=== PATIENT | male | born 1980 | race Caucasian/White ===

== ENCOUNTER 2023-02-11 07:44 | Outpatient (AMB) | payer SELFPAY ==
--- NOTE | 2023-02-11 07:24 | A.OFFVIS_ITS ---
Intake Vital Signs 02/11/23 07:25 Height 5 ft 9 in Weight 200 lb BMI 29.5 BP 126/76 Blood Pressure Location Rt brachial Intake Visit Reasons: Gastroesophageal reflux disease (GERD) Intake Note: patient here for new patient appointment. patient reports he had Colonoscopy and EGD in October of 2021. patient takes Prilosec for GERD, originally 20mg, has been on 40mg for some time now. cc: patient complains of abdominal bloating and distension and possible lactose intolerance. Allergies codeine Allergy (Verified 02/11/23 07:30) [facility] Medication List - Last Reconciled 02/11/23 by Judi Olson, RN multivitamin 1 tab PO DAILY pantoprazole (Protonix) 40 mg PO DAILY sumatriptan succinate 100 mg PO Q2-4H PRN HPI HPI Comments History of Present Illness Details A 42-year-old male referred with GERD he says-= he was not expecting this appointment- he has no urgent issues- he had been taking omeprazole 20 mg for about 2 years has since been increased to omeprazole 40 mg he continues to have breakthrough symptoms to include abdominal bloating. He tired cutting back to omeprazole 20 mg-had break through- very well controlled on Omeprazole 40 mg. He says he has Barretts esophagus he is being followed EGD and colonoscopy 1 year ago- prior to that 3 total endoscopies @ [facility]- followed Q 3 years- Father colon cancer in his 70's = alive He is scheduled to f/u for endoscopy @ [facility] in 2 years- Appetite is good- bowels typically ok-sometimes loose stool with milk- No N/V/ D- abdominal pain- fever or chills- PFSH Surgical History History of nasal surgery Family History Father Colon cancer Social History (Updated 02/11/23 @ 07:54 by Jeanine Christensen PA-C) Household Members Other:: no kids Alcohol intake: former Patient Tobacco Use Status: Never used Tobacco Use of substances other than those prescribed or required for medical reasons: Yes Substance Use Type: Opiates Review of Systems Const All systems reviewed & are unremarkable except as noted in HPI and below Card Denies chest pain and Denies dyspnea Resp Denies dyspnea GI Denies abdominal pain, Reports bloating, Denies hematochezia and Reports heartburn Physical Exam Vital Signs: Last Vital Signs BP 126/76 02/11/23 07:25 BMI result Body Mass Index 29.5 Const General: cooperative, healthy appearing, comfortable and no acute distress Orientation/consciousness: patient oriented x3 Limitations: no limitations Eyes Sclerae: sclerae normal Resp Effort & Inspection: normal respiratory effort Auscultation: clear to auscultation bilaterally, no rales, no rhonchi and no wheezes Cardio Rate: regular rate Rhythm: regular rhythm Heart sounds: S1 normal heart sound present and S2 normal heart sound present GI Palpation (GI): Soft to palpation and nontender Auscultation: normal bowel sounds Skin General skin exam: no rashes or lesions noted Neuro General: patient oriented x3 Extrem General: Yes full ROM Psych Appearance: grossly normal and well kempt Mental Status: mental status grossly normal Speech and movement: Normal speech and movement present and Clear speech present Affect: normal affect and Anxious affect present Attitude: cooperative Thought process: Normal thought process present Thought content: Normal thought content present Insight: Good insight present (Psych) Judgement: Good judgement present (Psych) Assessment & Plan Assessment & Plan (1) Chronic GERD: Comment: Very pleasant Lacey Discussed at length association and established care @ hospital in which-he does prefer to continue as they have his records as well as family members records. Should he reconsider he may call and we would be happy to follow Code(s): K21.9 - Gastro-esophageal reflux disease without esophagitis Plan: Continue omeprazole 40 mg daily F/u with primary gastoenterologist- he is happy- they have his records- Patient Instructions: Very pleasant 42-year-old Gent history of Land's esophagus and family history colon cancer- Continue omeprazole 40 mg daily F/u with primary gastoenterologist- he is happy- they have his records- Encouraged to call with questions and concerns-should he reconsider care-we would be happy to see him. Appreciate the opportunity assist in care of this pleasant Gent Coding Level of Care Code New Pt Level 3 (09342) Diagnoses Chronic GERD K21.9 Time Spent (min) 30
[2023-02-11 07:25] VITALS: BP 126/76; BMI 29.5
== END 2023-02-11 08:11 | disposition home or self-care (01) ==
PROVIDERS: PCP Nurse Practitioner; Visit Provider Physician Assistant
DX: K21.9 Gastro-esophageal reflux disease without esophagitis (principal)
CPT/HCPCS: 99203

== ENCOUNTER → 2023-02-11 07:44 | Outpatient (BNVA) | payer OTHER, SELFPAY | PROVIDERS: PCP Nurse Practitioner; Visit Provider Physician Assistant ==